=== PATIENT | male | born 1980 | race Caucasian/White ===

== ENCOUNTER 2024-09-26 14:27 | Emergency (ER) | payer OTHER, SELFPAY ==
--- NOTE | ~2024-09-26 | XR_ITS ---
XR hand LT min 3V Ordering provider: Sergio Almanzar MD History: . left hand dog bite ulnar aspect . Comparison: None. FINDINGS: BONES: No acute fracture or dislocation. JOINT SPACES: Well maintained. SOFT TISSUES: Soft tissue swelling near to the fifth metacarpal bone. IMPRESSION: No acute osseous abnormality left hand. Soft tissue swelling over the fifth metacarpal bone. Reviewed, dictated and finalized at location A.
[2024-09-26 14:31] VITALS: BP 151/96; PULSE 85; RESP 18; TEMP 36.6; O2SAT 100
[2024-09-26 14:38] VITALS: BP 151/96; PULSE 85; RESP 18; O2SAT 100
--- NOTE | 2024-09-26 15:22 | ED.WOUNDLAC ---
HPI - Wound/Laceration General Chief Complaint: Wound/Laceration Stated Complaint: DOG Bite Time Seen by Provider: 09/26/24 14:44 History of Present Illness HPI narrative: 44-year-old otherwise healthy male presenting to the emergency department for evaluation of a dog bite to his left hand. Dog was unprovoked, charge through a fence and broke the collar around his neck and attacked the patient while he was working at [employer]. Patient bit his left upper extremity at the ulnar aspect dorsal hand and ventral aspect hypothenar eminence. Dog is not vaccinated according to the patient and the dog building manager when EMS and police arrived. Patient has a history of previous dog bites, does not remember if he has ever had the vaccine series for rabies. Bleeding is under control, patient states he has some pain and tingling in his fingers of his left hand. No other trauma. There appears to be 2 isolated bites. Related Data Allergies Allergy/AdvReac Type Severity Reaction Status Date / Time No Known Allergies Allergy Verified 09/26/24 15:56 Review of Systems Review of Systems: As reviewed above in HPI Exam Narrative: GENERAL: [Well-appearing, well-nourished, and in no acute distress.] HEAD: [Normocephalic, atraumatic.] EYES: [PERRLA and EOMI.] ENT: Nares clear, no rhinorrhea or epistaxis. Mucous membranes moist. NECK: Supple. CHEST: [Clear to auscultation. No respiratory distress.] HEART: [Regular rate and rhythm]. No murmur heard. [Normal peripheral pulses.] ABDOMEN: [Soft, nondistended], [nontender], [No rigidity or guarding] EXTREMITIES: The left hand on the ulnar side dorsal aspect has a 0.5 cm puncture/bite vidhya as well as a 0.25 cm puncture/bite santana on the hypothenar eminence. No active bleeding. Able to range each digit, flex and extend at the MCP PIP and D IP joints equally. Plate Setter strength 5/5 bilaterally. Able to oppose each digit. SKIN: Warm, dry, no rash. NEURO: [No focal deficits]. Alert and oriented [x3.] PSYCH: [Normal mood and affect.] Course Vital Signs Vital signs: Vital Signs Temperature 36.6 C 09/26/24 14:31 Pulse Rate 85 09/26/24 14:31 Respiratory Rate 18 09/26/24 14:31 Blood Pressure 151/96 H 09/26/24 14:31 Pulse Oximetry 100 09/26/24 14:31 Oxygen Delivery Room Air 09/26/24 14:31 Temperature 36.6 C 09/26/24 14:31 Pulse Rate 85 09/26/24 14:38 Respiratory Rate 18 09/26/24 14:38 Blood Pressure 151/96 H 09/26/24 14:38 Pulse Oximetry 100 09/26/24 14:38 Oxygen Delivery Room Air 09/26/24 14:31 MDM - Wound/Laceration MDM Narrative Medical decision making narrative: 44-year-old male presenting for dog bite to his left hand. He has 2 puncture santana on the dorsal and ventral aspect of his left hand on the ulnar side. Dog bite was unprovoked with a rapid appearing animal that broke through a fence and leash and attacked the patient without warning. Vaccine status unconfirmed but dog building manager and police arrived and were not able to prove vaccine status. Patient is worried about rabies. His tetanus is already up-to-date. He has 2 puncture wounds that are small and not bleeding. Will evaluate with x-rays to make shows no foreign bodies. Given the location and size of the puncture santana will hold off on primary closure secondary to risks of trapping infection from oral sridevi of the dog. Wounds are not gaping or Mayra, secondary intention healing recommended. Patient was given Augmentin started here, x-rays were obtained and rabies series started with intramuscular vaccine and intramuscular/infiltrate of rabies immunoglobulin around the wound. Patient was informed about the rabies vaccine series and will be provided prescription for the appropriate timeline of events to get the remaining series. He will be discharged home upon completion of workup. Upon re-evaluation and patient informed that he does not wish to proceed with rabies vaccination as he was able to confirm with the police and neighbor that the dog is vaccinated. These orders were cancelled, his wounds were cleaned and dressed and he was sent home with a prescription for Augmentin and encouraged to follow-up with his primary care provider or return with any new or worsening concerns or signs of infection. Medical Records Attestation: I reviewed the patient's medical records. Imaging Data Attestation: I personally reviewed and interpreted this imaging study as follows: My impression: Impressions Hand X-Ray 09/26/24 15:33 IMPRESSION: No acute osseous abnormality left hand. Soft tissue swelling over the fifth metacarpal bone. Discharge Plan Discharge Clinical Impression: Dog bite of left hand Patient Disposition: Home, Self-Care Condition: Stable Instructions: Antibiotic Form, Animal Bite (ED), Puncture Wound (ED) Additional Instructions: We will send you home with antibiotics to cover for any dog bite infection. We will have to keep the wound open to allow drainage and for the wound to heal naturally. Keep the area covered and dry, wash with soap and water when cleaning. You can apply bacitracin/Neosporin on top. Return if any signs of purulent drainage, worsening pain, inability to flex the finger tips or any other concerns. Take Tylenol, ibuprofen, [id number] pain control medications for pain and swelling. Follow-up with regular doctor for wound re-evaluation and check. Patient Language: Tuvaluan Prescriptions: New amoxicillin-pot clavulanate 875-125 mg tablet 1 tablet PO Q12H 7 Days Qty: 14 0RF Follow-up/Referrals: UNKNOWN,DOCTOR [Primary Care Provider] - Time of Disposition: 16:31
--- NOTE | 2024-09-26 15:47 | PC.NURSE ---
Pt. alerted this RN that the dog who attacked him is up to date on his vaccinations so pt. does not need rabies vaccine anymore. Dr. Almanzar notified and verbal order given to discontinue. Pt. refused norco d/t worried about taking an opiate while working at [employer]. Dr. Childress notified and verbal order given for tylenol.
[2024-09-26] MEDS: ACETAMINOPHEN 500 MG TABLET 1000 MG PO (15:59)
[2024-09-26] MEDS: AMOXICILLIN/CLAVULANATE K 875-125 MG TAB 1 TABLET PO (15:59)
--- OUTSIDE RECORDS SUMMARY | 2024-09-26 17:07 | XMS_ITS | Referral Summary ---
Author Organization [facility] [employer] Address [address] [place] [address] Care Team Providers Care Tail Edger Name Role Phone Unavailable Primary Care Provider Unavailabl e Source Comments [facility] [employer],non-owned Affiliates and Associated Physician Practices is amultiple site organization consisting of ambulatory clinics and hospital sitesin [place], [place], [place] and [place]. This disclosure is being madepursuant to the Care Everywhere program and may not contain all information available regarding this patient. Last updated 18.[facility] [employer] Allergies No known active allergies Medications Be aware that medications may not be up to date on this document. Always verify current medications with the patient. No known medications Social History Tobacco Use Types Packs/Day Years Used Date Smoking Tobacco: Never Smokeless Tobacco: Current Sex and Gender Information Value Date Recorded Sex Assigned at Not on file Gender Identity Not on file Sexual Orientation Not on file Last Filed Vital Signs Vital Sign Reading Time Taken Comments Blood Pressure 120/68 08/01/2019 4:59 PM SENIOR LIVING SALES COUNSELOR Pulse 113 08/01/2019 4:59 PM SENIOR LIVING SALES COUNSELOR Temperature 37.4 C (99.3 F) 08/01/2019 4:59 PM SENIOR LIVING SALES COUNSELOR Respiratory Rate 16 08/01/2019 4:59 PM SENIOR LIVING SALES COUNSELOR Oxygen Saturation 98% 08/01/2019 4:59 PM SENIOR LIVING SALES COUNSELOR Inhaled Oxygen Concentration - - Weight 83.9 kg (185 lb) 08/01/2019 4:59 PM SENIOR LIVING SALES COUNSELOR Height 170.2 cm (5' 7 ) 08/01/2019 4:59 PM SENIOR LIVING SALES COUNSELOR Body Mass Index 28.98 08/01/2019 4:59 PM SENIOR LIVING SALES COUNSELOR Plan of Treatment Not on file
--- OUTSIDE RECORDS SUMMARY | 2024-09-26 17:07 | XMS_ITS | Clinical Summary ---
Author Organization [facility] [email or web address] Address [address] [place] [address] Care Team Providers Care Cooling Tower Technician Name Role Phone Unavailable Primary Care Provider Unavailabl e Source Comments [facility] [email or web address],non-owned Affiliates and Associated Physician Practices is amultiple site organization consisting of ambulatory clinics and hospital sitesin [place], [place], [place] and [place]. This disclosure is being madepursuant to the Care Everywhere program and may not contain all information available regarding this patient. Last updated 18.[facility] [email or web address] Allergies No known active allergies Medications Be [...] Comments Blood Pressure 120/68 08/01/2019 4:59 PM SALES ORDER ADMINISTRATOR Pulse 113 08/01/2019 4:59 PM SALES ORDER ADMINISTRATOR Temperature 37.4 C (99.3 F) 08/01/2019 4:59 PM SALES ORDER ADMINISTRATOR Respiratory Rate 16 08/01/2019 4:59 PM SALES ORDER ADMINISTRATOR Oxygen Saturation 98% 08/01/2019 4:59 PM SALES ORDER ADMINISTRATOR Inhaled Oxygen Concentration - - Weight 83.9 kg (185 lb) 08/01/2019 4:59 PM SALES ORDER ADMINISTRATOR Height 170.2 cm (5' 7 ) 08/01/2019 4:59 PM SALES ORDER ADMINISTRATOR Body Mass Index 28.98 08/01/2019 4:59 PM SALES ORDER ADMINISTRATOR Plan of Treatment Health Maintenance Due Date Last Done Comments LIPID TESTING 1981 HIV SCREENING 1996 HEPATITIS C SCREENING 06/28/1999 DTAP/TDAP/TD VACCINES (1 - Tdap) 2000 HEPATITIS B VACCINE (1 of 3 - 19+ 3-dose series) 2000 COVID-19 VACCINE (1 - 2023-2 5 season) 2024 INFLUENZA VACCINE (#1) 2024 DEPRESSION SCREENING 07/18/2024 ZOSTER VACCINE (1 of 2) 2031 HIB VACCINE Aged Out No longer eligi ble based on patient's age to complete this topic HPV VACCINE Aged Out No longer eligi ble based on patient's age to complete this topic MENINGOCOCCAL (Group B) VACC INE SHARED DECISION-MAKING Aged Out No longer eligibl e based on patient's age to complete this topic MENINGOCOCCAL GROUPS A/C/Y/W VACCINE Aged Out No longer eligible b ased on patient's age to complete this topic PNEUMOCOCCAL VACCINE Aged Out No long er eligible based on patient's age to complete this topic
--- OUTSIDE RECORDS SUMMARY | 2024-09-26 17:07 | XMS_ITS | Patient Health Summary ---
Author Organization [facility] [employer] Address [address] [place] [address] Care Team Providers Care Assisted Living Manager Name Role Phone Unavailable Primary Care Provider Unavailabl e Note from [facility],non-owned Affiliates and Associated Physician Practices is amultiple site organization consisting of ambulatory clinics and hospital sitesin [place], [place], [place] and [place]. This disclosure is being madepursuant to the Care Everywhere program and may not contain all information available regarding this patient. Last updated 18.[facility] [employer] Allergies No known active allergies Medications Be [...] Comments Blood Pressure 120/68 08/01/2019 4:59 PM TELEPHOTO ENGINEER Pulse 113 08/01/2019 4:59 PM TELEPHOTO ENGINEER Temperature 37.4 C (99.3 F) 08/01/2019 4:59 PM TELEPHOTO ENGINEER Respiratory Rate 16 08/01/2019 4:59 PM TELEPHOTO ENGINEER Oxygen Saturation 98% 08/01/2019 4:59 PM TELEPHOTO ENGINEER Inhaled Oxygen Concentration - - Weight 83.9 kg (185 lb) 08/01/2019 4:59 PM TELEPHOTO ENGINEER Height 170.2 cm (5' 7 ) 08/01/2019 4:59 PM TELEPHOTO ENGINEER Body Mass Index 28.98 08/01/2019 4:59 PM TELEPHOTO ENGINEER Procedures * INFLUENZA A+B - POINT OF CARE (AMB)(Performed 08/01/2019) Performed for Fever, unspecified fever cause Results * INFLUENZA A+B - POINT OF CARE (AMB) (08/01/2019) Influenza A Antigen Rapid Negative Negative Influenza B Antigen Rapid Negative Negative Influenza Internal Control neg/pos NEGATIVE - POSITIVE Influenza Lot Number [id number] Influenza Expiration Date 10/25/2020 Other NASOPHARYNGEAL SWAB / Unknown 08/01/2019 [facility] - POINT O F CARE ORDERABLES
--- OUTSIDE RECORDS SUMMARY | 2024-09-26 17:07 | XMS_ITS | Referral Summary ---
Author Organization [facility] Address [address] [place] [id number] Care Team Providers Care Senior Instrumentation Engineer Name Role Phone Frederick Portillo MD Primary Care Provider +1- [phone] Allergies No known active allergies Medications No known medications Active Problems No known active problems Social History Tobacco Use Types Packs/Day Years Used Date Smoking Tobacco: Never Passive Smoke Exposure: Never Smokeless Tobacco: Never Tobacco Cessation:Counseling Given: Not Answered Personal Safety Answer Date Recorded Getting School Help Needed Not on file Sex and Gender Information Value Date Recorded Sex Assigned at Not on file Legal 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 Gender Identity Not on file Sexual Orientation Not on file Last Filed Vital Signs Vital Sign Reading Time Taken Comments Blood Pressure 124/81 10/02/2022 6:25 PM CDT Pulse 77 10/02/2022 6:25 PM CDT Temperature - - Respiratory Rate 22 10/02/2022 6:25 PM CDT Oxygen Saturation 100% 10/02/2022 6:25 PM CDT Inhaled Oxygen Concentration - - Weight 88.5 kg (195 lb) 10/02/2022 6:25 PM CDT Height 170.2 cm (5' 7 ) 10/02/2022 6:25 PM CDT Body Mass Index 30.54 10/02/2022 6:25 PM CDT Plan of Treatment Not on file Insurance [facility] Care Teams Senior Instrumentation Engineer Relationship Specialty Start Date End Date Frederick Portillo MD [facility] [place] [address] PCP - General Family Medicine 10/02/22
--- OUTSIDE RECORDS SUMMARY | 2024-09-26 17:07 | XMS_ITS | Clinical Summary ---
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 Gender Identity Not on file Sexual Orientation Not on file Obstetrics History Last Filed Vital Signs Vital Sign Reading [...] 10/02/2022 6:25 PM CDT Plan of Treatment Health Maintenance Due Date Last Done Comments Depression Screening 1981 Hepatitis C Screening 1981 DTaP/Tdap/Td Vaccine (1 - Tdap) 1992 Varicella Vaccines (1 of 2 - 13+ 2-dose series) 1994 Hepatitis B Screening 1999 Regular Well Visit/Exam 18-64 1999 Covid-19 Vaccine (2023-2 5 season) 2024 10/26/2020, 10/05/2020 Influenza Vaccine (#1) 2024 05/19/2019 HPV Vaccines Aged Out No longer eligi ble based on patient's age to complete this topic Pneumococcal vaccine <65 Aged Out No longer eligible based on patient's age to complete this topic Insurance [employer] [place] Care Teams Beef Selector Relationship Specialty Start Date End Date Frederick Portillo MD [facility] [place], [place] [id number] PCP - General Family Medicine 10/02/22
== END 2024-09-26 16:44 | disposition home or self-care (01) ==
PROVIDERS: Emergency Provider Student in an Organized Health Care Education/Training Program
DX: S61.452A Open bite of left hand, initial encounter (principal); W54.0XXA Bitten by dog, initial encounter
CPT/HCPCS: 73130; 99283; A9270